=== PATIENT | male | born 1990 | race Two or more races ===

== ENCOUNTER 2021-03-08 00:06 | Emergency (ER) | payer MEDICAID, OTHER ==
[~2021-03-08] VITALS: Ht 188 cm; Wt 90.7 kg
--- NOTE | 2021-03-08 00:21 | NUR ---
PT PLACED IN BED 11 ON MONITOR AND PULSE OX. C/O METH AND MARIJAUNA USE. STATING HIS LIVER AND KIDNEY IS PULSATING. NO ACUTE DISTRESS NOTED. VSS. ER MD AT BEDSIDE.
[2021-03-08] MEDS ORDERED: LORAZEPAM INJ 2 MG/ML VIAL ONE ×2 (00:49→02:32)
[2021-03-08] MEDS ORDERED: IV NS 0.9% 1,000 ML BAG IV ONE (01:00)
[2021-03-08] MEDS ORDERED: LORAZEPAM INJ 2 MG/ML VIAL IVP ONE (01:00)
[2021-03-08 01:08] LABS: BASOPHILS # (AUTO) 0.1 /CMM (0.0-0.2); BASOPHILS % (AUTO) 0.9 % (0.0-2.0); EOSINOPHILS % (AUTO) 0.9 % (0.0-6.0); HEMATOCRIT 50 % (39-51); HEMOGLOBIN 16.9 g/dL (13.5-17.5); LYMPHOCYTES % (AUTO) 16.5 % (20.0-44.0); MEAN CORPUSCULAR HGB CONC 34 g/dl (31.0-36.0); MEAN CORPUSCULAR VOLUME 87 fL (80-96); MONOCYTES # (AUTO) 1.1 /CMM (0.1-1.30); MONOCYTES % (AUTO) 9.4 % (2.0-12.0); NEUTROPHILS # (AUTO) 8.6 /CMM (1.8-8.9); NEUTROPHILS % (AUTO) 72.3 % (43.0-81.0); PLATELET COUNT (AUTO) 185 /CMM (150-450); RED BLOOD CELL COUNT(AUTO) 5.77 MIL/uL (4.5-6.0); WHITE BLOOD COUNT (AUTO) 11.9 K/uL (4.3-11.0)
--- NOTE | 2021-03-08 01:34 | NUR ---
PT AMBULATING AROUND HIS BED, PULLING THE MONITOR LINES.
[2021-03-08 01:35] LABS: CALCIUM, SERUM 9.2 mg/dL (8.5-10.1); CARBON DIOXIDE 23 mmol/L (21-32); CHLORIDE 102 mmol/L (98-107); GLUCOSE 102 mg/dL (74-106); POTASSIUM 3.2 mmol/L (3.5-5.1); SODIUM SERUM 138 mmol/L (136-145); UREA NITROGEN, BLOOD 8 mg/dL (7-18)
[2021-03-08 01:48] LABS: ALANINE AMINOTRANSFERASE 25 U/L (12-78); ALBUMIN 4.2 g/dL (3.4-5.0); ALCOHOL, BLOOD < 3 mg/dL (0-0); ALKALINE PHOSPHATASE 105 U/L (46-116); ASPARTATE AMINOTRANSFERASE 17 U/L (15-37); BILIRUBIN,DIRECT 0.3 mg/dL (0.0-0.2); BILIRUBIN,TOTAL 1.4 mg/dL (0.2-1.0); TOTAL PROTEIN, SERUM 8.5 g/dL (6.4-8.2)
[2021-03-08 02:01] LABS: ACETAMINOPHEN < 3 ug/ml (10-30)
[2021-03-08] MEDS ORDERED: LORAZEPAM INJ 2 MG/ML VIAL IV ONE (02:30)
--- NOTE | 2021-03-08 02:52 | NUR ---
PT AMBULATING AROUND HIS BED, UNABLE TO PROVIDE URINE SAMPLE.
--- NOTE | 2021-03-08 04:22 | NUR ---
ASKED THE PT TO PROVIDE URINE SAMPLE, UNABLE TO.
--- NOTE | 2021-03-08 05:57 | NUR ---
PT STILL UNABLE TO PROVIDE URINE SAMPLE AT THIS TIME. MD LUKE
--- NOTE | 2021-03-08 06:34 | NUR ---
PT IN BED, RESTING COMFORTABLY. AWAITING FOR PT TO PROVIDE URINE SAMPLE.
--- NOTE | 2021-03-08 07:43 | NUR ---
ASSESSED PT ON BED ASLEEP EASILY AROUSABLE, NOT IN RESPIRATORY DISTRESS, V/S STABLE, KEPT RESTED AND COMFORTABLE. WILL CONTINUE TO MONITOR.
--- NOTE | 2021-03-08 09:09 | NUR ---
PT ABLE TO AMBULATE GOING TO RESTROOM WITHOUT ASSISTANCE.
--- NOTE | 2021-03-08 09:20 | NUR ---
IV removed. Catheter intact and site benign. Pressure and 4x4 applied to site. No bleeding noted.
--- NOTE | 2021-03-08 09:23 | NUR ---
Patient given written and verbal discharge instructions. Patient verbalizes understanding of instructions. Patient is ambulatory with steady gait. Refuses offer of half-way placement. Patient given list of available shelters in surrounding area.
[2021-03-08 09:28] VITALS: BP 139/86
== END 2021-03-08 09:28 | disposition home or self-care (01) ==
LOC: ER 00:08
DX: F15.129 Other stimulant abuse with intoxication, unspecified (principal); F60.0 Paranoid personality disorder; F22 Delusional disorders; R94.31 Abnormal electrocardiogram [ECG] [EKG]; F17.200 Nicotine dependence, unspecified, uncomplicated; Z88.6 Allergy status to analgesic agent; Z91.040 Latex allergy status; Z59.0 Homelessness
CPT/HCPCS: 36415; 80048; 80076; 80299; 80320; 84484; 85025; 93005; 96361; 96374; 96376; 99284; J2060 ×2; J7030; G0480